=== PATIENT | male | born 1960 | race Caucasian/White ===

== ENCOUNTER → 2016-09-12 | Day surgery (SDC) | payer MEDICARE ==
[~2016-09-12] MED LIST: LIDOCAINE 2% JELLY 5 ML TUBE ONE
== END ==
LOC: END 07:41
PROVIDERS: ATTEND Surgery
PROC: 4A0B7BZ Measurement of Gastrointestinal Pressure, Via Natural or Artificial Opening (ICD-10-PCS; principal; 2016-09-12)
DX: R10.13 Epigastric pain (principal); K21.9 Gastro-esophageal reflux disease without esophagitis; R11.0 Nausea
CPT/HCPCS: 91010

== ENCOUNTER → 2016-09-14 | Day surgery (SDC) | payer MEDICARE | LOC: END 07:29 | PROVIDERS: ATTEND Surgery | PROC: 4A0B78Z Measurement of Gastrointestinal Motility, Via Natural or Artificial Opening (ICD-10-PCS; principal; 2016-09-14) | DX: K21.9 Gastro-esophageal reflux disease without esophagitis (principal); R10.13 Epigastric pain | CPT/HCPCS: 91034 ==